=== PATIENT | female | born 1965 | race Caucasian/White ===

== ENCOUNTER → 2024-02-27 15:17 | Outpatient (REF) | payer BC, SELFPAY | LOC: HWRAD 15:17 | PROVIDERS: ATTENDING PHYSICIAN Student in an Organized Health Care Education/Training Program | DX: R68.83 Chills (without fever) (principal) | CPT/HCPCS: 71046 ==

== ENCOUNTER → 2024-05-21 15:29 | Outpatient (REF) | payer BC, SELFPAY | LOC: HWWDC 15:29 | PROVIDERS: ATTENDING PHYSICIAN Physician Assistant Medical | DX: Z12.31 Encounter for screening mammogram for malignant neoplasm of breast (principal) | CPT/HCPCS: 77063; 77067 ==